=== PATIENT | male | born 1980 | race Caucasian/White ===

== ENCOUNTER 2017-10-09 19:13 | Emergency (ER) | payer OTHER ==
[~2017-10-09] VITALS: Ht 175.3 cm; Wt 104.3 kg
--- NOTE | 2017-10-09 19:19 | NUR ---
PT AMBULATED TO CHAIR A
[2017-10-09 19:21] VITALS: BP 129/91
--- NOTE | 2017-10-09 19:27 | NUR ---
Dr. Pierre evaluating patient.
--- NOTE | 2017-10-09 19:37 | NUR ---
36Y/M PT. PRESENTS TO ED WITH C/O RASH TO CHEST X 1 WK. PT. STATES RASH WITH SHOOTING PAIN. NO MED HX. AAO X4, AMBULATORY WITH STEADY GAIT. RASH TO CHEST, DRY, C/O PAIN 01/24. VSS, ER MADE AWARE OF PT. STATUS.
[2017-10-09 19:48] VITALS: BP 129/91
--- NOTE | 2017-10-09 19:49 | NUR ---
Patient discharged with v/s stable. Written and verbal after care instructions given and explained. Patient alert, oriented and verbalized understanding of instructions. Ambulatory with steady gait. All questions addressed prior to discharge. ID band removed. Patient advised to follow up with PMD. Rx of ACYCLOVIR 800 MG. PREDNISONE 20 MG given. Patient educated on indication of medication including possible reaction and side effects. Opportunity to ask questions provided and answered.
== END 2017-10-09 19:49 | disposition home or self-care (01) ==
LOC: MED 19:13
DX: B02.8 Zoster with other complications (principal); Z88.0 Allergy status to penicillin; Z90.89 Acquired absence of other organs
CPT/HCPCS: 99283

== ENCOUNTER 2019-03-31 23:35 | Emergency (ER) | payer OTHER ==
[~2019-03-31] VITALS: Ht 175.3 cm; Wt 122.5 kg
[2019-03-31 23:45] VITALS: BP 131/74
--- NOTE | 2019-03-31 23:48 | NUR ---
TO LOBBY A/W BED AMBULATORY
--- NOTE | 2019-04-01 00:15 | NUR ---
PT CAME TO ER C/O BEING LIGHT-HEADED, DIZZY WITH NAUSEA SINCE 1300 03/31/19. PT DENIES VISION PROBLEMS. DENIES PAIN, PAIN LEVEL 0/10. DENIES FEVER OR CHILLS. DENIES VOMITING/DIARRHEA. ALLERGIES: PENICILLIN. MED HX: APPENDICITIS AND TESTICULAR TORSION. SAFETY MEASURES IN PLACE. WAITING FOR ERMD TO EVALUATE PT.
[2019-04-01] MEDS ORDERED: MECLIZINE 25 MG TAB PO ONE (01:15)
[2019-04-01] MEDS ORDERED: ONDANSETRON 4 MG ODT PO ONE (01:15)
--- NOTE | 2019-04-01 03:26 | NUR ---
Dr. Amos evaluating patient at bedside.
--- NOTE | 2019-04-01 03:50 | NUR ---
Patient discharged with v/s stable. Written and verbal after care instructions given and explained. Pt explained to drink plenty of fluids and to change positions slowly when feeling dizzy. Patient alert, oriented and verbalized understanding of instructions. Ambulatory with steady gait. All questions addressed prior to discharge. ID band removed. Patient advised to follow up with PMD. Rx of zofran and meclizine was given. Patient educated on indication of medication including possible reaction and side effects. Opportunity to ask questions provided and answered.
[2019-04-01 03:51] VITALS: BP 131/74
== END 2019-04-01 03:50 | disposition home or self-care (01) ==
LOC: MED 23:35
DX: H81.10 Benign paroxysmal vertigo, unspecified ear (principal); R11.0 Nausea; F17.210 Nicotine dependence, cigarettes, uncomplicated; Z90.89 Acquired absence of other organs; Z98.890 Other specified postprocedural states; Z88.0 Allergy status to penicillin
CPT/HCPCS: 99283; J8597; Q0162

== ENCOUNTER 2022-12-01 08:31 | Emergency (ER) | payer OTHER ==
[~2022-12-01] VITALS: Ht 175.3 cm; Wt 127.0 kg
[2022-12-01 08:45] VITALS: BP 148/93
--- NOTE | 2022-12-01 09:15 | NUR ---
41 yo/m presents to ED w c/o R foot injury s/p kicking the stairs rail while attemptimg to kick laundry up, pt presents w bruising to top part of foot and toes, + swelling, pt denies pain at this time. +sensation, +rom, cap refil <2sec. pt pending xray. pmh: denies allergies: penicillis
[2022-12-01] MEDS ORDERED: NAPR-1704 PO (09:38)
[2022-12-01 09:50] VITALS: BP 131/86
--- NOTE | 2022-12-01 09:50 | NUR ---
0952 PT'S RIGHT FOOT 2ND AND 3RD DIGITS CARLO TAPED AND FITTED W/ ORTHO SHOE. +CMS
== END 2022-12-01 09:59 | disposition home or self-care (01) ==
LOC: MED 08:31
DX: S92.411A Displaced fracture of proximal phalanx of right great toe, initial encounter for closed fracture (principal); W22.8XXA Striking against or struck by other objects, initial encounter; Y93.89 Activity, other specified; Y92.89 Other specified places as the place of occurrence of the external cause; Y99.8 Other external cause status
CPT/HCPCS: 29515; 73660; 99283

== ENCOUNTER 2023-08-09 23:51 | Emergency (ER) | payer OTHER ==
[~2023-08-09] VITALS: Ht 175.3 cm; Wt 122.5 kg
[~2023-08-09 23:51] MED LIST: NAPR-1704 PO
[2023-08-10 00:28] VITALS: BP 146/86; PULSE 63; RESP 18; TEMP 98.1; O2SAT 95
== END 2023-08-10 05:00 | disposition left against medical advice (07) ==
LOC: MED 23:51
DX: H57.89 Other specified disorders of eye and adnexa (principal); H53.8 Other visual disturbances; R05.9 Cough, unspecified; Z53.21 Procedure and treatment not carried out due to patient leaving prior to being seen by health care provider
CPT/HCPCS: 99281